=== PATIENT | female | born 1950 ===

== ENCOUNTER 2017-10-16 16:00 | Emergency (ER) | payer OTHER ==
[2017-10-16 16:14] VITALS: TEMP 98.2
--- NOTE | 2017-10-16 16:49 | C.PDOC ---
History Of Present Illness 67 year old female with Hx of HTN is sent from the clinic today for evaluation of high BP. Patient states she is from the and afraid her HTN medications are going to run out while she is in [place] so instead of taking medications everyday she has been taking them every other day. Patient reports having a headache and went to the clinic today and her BP was elevated, took some medicine approximately 20 minutes ago. Patient denies CP, SOB, dizziness, numbness, weakness. Time Seen by Provider: 10/16/17 16:22 Chief Complaint (Nursing): High Blood Pressure History Per: Patient History/Exam Limitations: no limitations Onset/Duration Of Symptoms: Hrs Current Symptoms Are (Timing): Still Present Associated Symptoms: Headache. denies: Chest Pain, Dizziness Quality Of Symptoms: Asymptomatic Severity: None Exacerbating Factor(s): Pos: Recently Missed Doses Of Medication Recent travel outside of the [place]: No Additional History Per: Patient Past Medical History Reviewed: Historical Data, Nursing Documentation, Vital Signs Vital Signs: Last Vital Signs Temp 98.2 F 10/16/17 16:10 Pulse 64 10/16/17 17:56 Resp 18 10/16/17 17:56 BP 198/97 H 10/16/17 17:56 Pulse Ox 95 10/16/17 18:12 - Medical History PMH: HTN Surgical History: Appendectomy, Cholecystectomy Family History: States: Unknown Family Hx - Social History Hx Alcohol Use: No Hx Substance Use: No - Immunization History Hx Influenza Vaccination: Yes Review Of Systems Constitutional: Negative for: Fever, Chills Eyes: Negative for: Vision Change Cardiovascular: Negative for: Chest Pain, Palpitations Respiratory: Negative for: Cough, Shortness of Breath Gastrointestinal: Negative for: Nausea, Vomiting, Abdominal Pain Skin: Negative for: Rash Neurological: Positive for: Headache. Negative for: Weakness, Numbness, Dizziness Physical Exam - Physical Exam Appears: Non-toxic, No Acute Distress Skin: Normal Color, Warm, Dry Head: Atraumatic, Normacephalic Eye(s): bilateral: Normal Inspection, PERRL Nose: No Discharge Oral Mucosa: Moist Neck: Normal ROM, Supple Chest: Symmetrical Cardiovascular: Rhythm Regular, No Murmur Respiratory: Normal Breath Sounds, No Rales, No Rhonchi, No Wheezing Gastrointestinal/Abdominal: Soft, No Tenderness Extremity: Normal ROM, No Pedal Edema, No Calf Tenderness, No Swelling Neurological/Psych: Oriented x3, Normal Speech, Normal Cognition Gait: Steady ED Course And Treatment O2 Sat by Pulse Oximetry: 95 (On RA) Pulse Ox Interpretation: Normal Progress Note: Treated with tylenol 975 mg PO. Patient reports she took her B/ P meds prior to arrival. On re-evaluation lungs clear, alert, ambulating with steady gait. Patient request prescription for B/P meds Reassessment Condition: Improved Medical Decision Making Medical Decision Making: Plan : * Tylenol 975 mg PO given Disposition Counseled Patient/Family Regarding: Studies Performed, Diagnosis, Need For Followup - Disposition Referrals: [facility] [Outside] [facility] [Outside] Disposition: HOME/ ROUTINE Disposition Time: 18:15 Condition: STABLE Additional Instructions: Follow up with clinic for further evaluation Take medications as directed Return to ED if any increase symptoms Prescriptions: Hydrochlorothiazide [Microzide] 25 mg PO DAILY #30 cap Losartan [Cozaar] 100 mg PO DAILY #30 tab Metoprolol Tartrate [Lopressor] 100 mg PO DAILY #30 tab NIFEdipine ER [Procardia XL] 60 mg PO DAILY #30 tab Instructions: Hypertension (DC), Medicine Refill (ED) Forms: [employer] ([place]orese) Print Language: TURKISH - POA Present On Arrival: None - Clinical Impression Clinical Impression: Hypertension - 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 - Scribe Statement The provider has reviewed the documentation as recorded by the Scribe Sammy Barnett All medical record entries made by the Scribe were at my direction and personally dictated by me. I have reviewed the chart and agree that the record accurately reflects my personal performance of the history, physical exam, medical decision making, and the department course for this patient. I have also personally directed, reviewed, and agree with the discharge instructions and disposition.
[2017-10-16 17:57] VITALS: BP 198/97; PULSE 64; RESP 18
[2017-10-16 18:06] VITALS: O2SAT 95
== END 2017-10-16 18:30 | disposition home or self-care (01) ==
LOC: C.ER 16:00
DX: I10 Essential (primary) hypertension (principal)

== ENCOUNTER 2018-07-24 11:03 | Emergency (ER) | payer OTHER ==
[2018-07-24 11:04] VITALS: BMI 30.6
[2018-07-24 11:15] VITALS: TEMP 98.3
--- NOTE | 2018-07-24 12:04 | C.PDOC ---
History Of Present Illness 68 year old female presents to the ED complaining of headache, dizziness, and lower back pain. Patient states headache radiates from the back of head to the front. She denies any tingling, vision changes, speech difficulty, fever, or chills. She denies any head trauma or falls. Patient also complains of right arm pain. Denies any weakness or numbness. Time Seen by Provider: 07/24/18 11:26 Chief Complaint (Nursing): Dizziness/Lightheaded History Per: Patient History/Exam Limitations: no limitations Onset/Duration Of Symptoms: Hrs Current Symptoms Are (Timing): Still Present Fall Associated With With Symptoms: No Past Medical History Reviewed: Historical Data, Nursing Documentation, Vital Signs Vital Signs: Last Vital Signs Temp 98.3 F 07/24/18 11:11 Pulse 70 07/24/18 15:35 Resp 14 07/24/18 15:35 BP 175/89 H 07/24/18 15:35 Pulse Ox 99 07/24/18 15:35 - Medical History PMH: HTN Surgical History: Appendectomy, Cholecystectomy Family History: States: No Known Family Hx - Social History Hx Alcohol Use: No Hx Substance Use: No - Immunization History Hx Influenza Vaccination: Yes Review Of Systems Except As Marked, All Systems Reviewed And Found Negative. Constitutional: Negative for: Fever, Chills Gastrointestinal: Negative for: Vomiting Musculoskeletal: Positive for: Arm Pain (Right ), Back Pain Neurological: Positive for: Headache, Dizziness. Negative for: Weakness, Numbness Physical Exam - Physical Exam Appears: Non-toxic Skin: Warm, Dry Head: Atraumatic, Normacephalic Eye(s): bilateral: Normal Inspection, PERRL, EOMI Nose: Normal Oral Mucosa: Moist Neck: Normal ROM Chest: Symmetrical Cardiovascular: Rhythm Regular Respiratory: Normal Breath Sounds, No Rales, No Rhonchi, No Wheezing Gastrointestinal/Abdominal: Bowel Sounds (active and normal), Soft, No Tenderness Back: No CVA Tenderness Extremity: Normal ROM, No Tenderness Extremity: Bilateral: Atraumatic Neurological/Psych: Oriented x3, Normal Speech, Normal Motor, Normal Sensation, Normal Reflexes ED Course And Treatment - Laboratory Results Result Diagrams: 07/24/18 12:26 07/24/18 12:26 O2 Sat by Pulse Oximetry: 98 (RA) Pulse Ox Interpretation: Normal Medical Decision Making Medical Decision Making: Orders: - Bloodwork - CXR Labs were WNL's, and the BP has improved. The patient reports that she does not want to be admitted into the hospital and is requesting to be discharged. On re-exam, the patient is resting comfortably. Lungs are CTA, heart is RRR, abdomen is soft, non-tender and the patient is tolerating PO well. Patient is ambulatory with steady gait. Follow up with the medical doctor within 1-2 days without fail. Return if worsened. Disposition - Disposition Referrals: [facility] [Outside] Disposition: AGAINST MEDICAL ADVICE Disposition Time: 13:38 Condition: FAIR Additional Instructions: Follow up with the medical doctor within 1-2 days without fail. Return if worsened. 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 - Scribe Statement The provider has reviewed the documentation as recorded by the Scribe Paola Del Real All medical record entries made by the Alex were at my direction and personally dictated by me. I have reviewed the chart and agree that the record accurately reflects my personal performance of the history, physical exam, medical decision making, and the department course for this patient. I have also personally directed, reviewed, and agree with the discharge instructions and disposition.
--- NOTE | 2018-07-24 12:24 | RAD ---
HISTORY: hypertension urgency COMPARISON: None available. TECHNIQUE: Chest, one view. FINDINGS: LUNGS: Biapical pleural thickening and upper lobe granulomatous changes. No focal consolidation. Please note that chest x-ray has limited sensitivity for the detection of pulmonary masses. PLEURA: No significant pleural effusion identified. No definite pneumothorax . CARDIOVASCULAR: Borderline cardiomegaly. Ectatic aorta. Atherosclerotic calcifications. OSSEOUS STRUCTURES: Degenerative changes. VISUALIZED UPPER ABDOMEN: Unremarkable. OTHER FINDINGS: None. IMPRESSION: Borderline cardiomegaly. Ectatic aorta. Atherosclerotic calcifications. Biapical pleural thickening and upper lobe granulomatous changes.
[2018-07-24 12:36] LABS: BASO % 0.9 % (0.0-2.0); EOS # 0.1 K/uL (0.0-0.7); HEMOGLOBIN 12.7 g/dL (11.0-16.0); LYMPH # 2.1 K/uL (1.0-4.3); LYMPH % 47.3 % (20.0-40.0); MEAN CELL VOLUME 84.6 fL (81.0-99.0); MEAN CORPUSCULAR HEMOGLOBIN 27.6 pg (27.0-31.0); MEAN CORPUSCULAR HGB CONC 32.7 g/dL (33.0-37.0); MEAN PLATELET VOLUME 10.3 fL (7.2-11.7); MONO # 0.3 K/uL (0.0-0.8); MONO % 7.1 % (0.0-10.0); NEUT # 1.9 K/uL (1.8-7.0); NEUT % 42.7 % (50.0-75.0); RBC 4.59 Mil/uL (3.80-5.20); RED CELL DISTRIBUTION WIDTH 13.5 % (11.5-14.5); WHITE BLOOD COUNT 4.4 K/uL (4.8-10.8)
[2018-07-24] MEDS ORDERED: Labetalol 25mg/5ml Syringe IV STA (12:41)
[2018-07-24 12:49] LABS: ALB/GLOB RATIO 1.3 (1.0-2.1); ALBUMIN 4.1 g/dL (3.5-5.0); ALT/SGPT 23 U/L (9-52); AST/SGOT 20 U/L (14-36); BLOOD UREA NITROGEN 25 mg/dL (7-17); CALCIUM 9.1 mg/dl (8.6-10.4); GFR NON-AFRICAN AMERICAN > 60
[2018-07-24 13:00] LABS: CK-MB 1.15 ng/mL (0.0-3.38)
[2018-07-24 15:35] VITALS: BP 175/89; PULSE 70; RESP 14
--- NOTE | 2018-07-26 22:57 | CARD ---
APPROVED REPORT Date of service: 07/24/2018 EKG Measurement Heart [id number] <Conclusion> Normal sinus rhythm Possible Left atrial enlargement Left ventricular hypertrophy Cannot rule out Septal infarct, age undetermined T wave abnormality, consider lateral ischemia Abnormal ECG
[2018-07-28 22:03] VITALS: O2SAT 98
== END 2018-07-24 15:49 | disposition left against medical advice (07) ==
LOC: C.ER 11:03
DX: I16.0 Hypertensive urgency (principal); R42 Dizziness and giddiness; I10 Essential (primary) hypertension

== ENCOUNTER 2018-11-24 08:16 | Outpatient (CLI) | payer OTHER | END 2018-11-24 08:17 | disposition home or self-care (01) | LOC: C.CARD 08:16 | DX: I10 Essential (primary) hypertension (principal) ==

== ENCOUNTER 2018-11-28 06:59 | Outpatient (CLI) | payer OTHER | END 2018-11-28 07:00 | disposition home or self-care (01) | LOC: C.USIC 06:59 | DX: R10.11 Right upper quadrant pain (principal); R93.89 Abnormal findings on diagnostic imaging of other specified body structures ==

== ENCOUNTER 2019-03-16 08:44 | Outpatient (CLI) | payer OTHER | END 2019-03-16 08:45 | disposition home or self-care (01) | LOC: C.LAB 08:44 | DX: I10 Essential (primary) hypertension (principal) ==